=== PATIENT | male | born 1950 ===

== ENCOUNTER 2016-09-15 02:34 | Inpatient (IN) | payer BC ==
[2016-09-15] MEDS ORDERED: Sodium Chloride 0.9% 1,000 ML IV ONE ×3 (02:51→04:22)
[2016-09-15] MEDS ORDERED: Pantoprazole 80 MG in Sodium Chloride 0.9% 100 ML IV STA (02:51)
--- NOTE | 2016-09-15 02:51 | C.PDOC ---
History Of Present Illness pt presents with 3-4 melanotic stools. No f/c/n/v. Pt takes a baby asa. No cp or palpitations. Time Seen by Provider: 09/15/16 02:45 Chief Complaint (Nursing): GI Problem History Per: Patient History/Exam Limitations: no limitations Onset/Duration Of Symptoms: Hrs Current Symptoms Are (Timing): Still Present Number Of Bleeding Episodes: Multiple: (4) Amount of Blood Loss: Medium Severity: Moderate Pain Scale Rating Of: 4 Quality Of Discomfort: Dull Associated Symptoms: Melena. denies: Nausea, Vomiting, Diarrhea, Coffee Ground material, Rectal Bleeding Modifying Factors: None Currently Taking: Aspirin Recent travel outside of the [place]: No Additional History Per: Family Past Medical History Reviewed: Historical Data, Nursing Documentation, Vital Signs Vital Signs: Last Vital Signs Temp 98.1 F 09/15/16 02:39 Pulse 75 09/15/16 03:28 Resp 14 09/15/16 03:28 BP 105/54 L 09/15/16 03:31 Pulse Ox 99 09/15/16 03:28 - Medical History PMH: HTN, Hypercholesterolemia Surgical History: Cholecystectomy Family History: States: No Known Family Hx - Social History Hx Alcohol Use: No Hx Substance Use: No - Immunization History Hx Tetanus Toxoid Vaccination: Yes Hx Influenza Vaccination: Yes Hx Pneumococcal Vaccination: No Review Of Systems Constitutional: Negative for: Fever, Chills Eyes: Negative for: Redness ENT: Negative for: Throat Pain Cardiovascular: Negative for: Chest Pain, Palpitations Respiratory: Negative for: Shortness of Breath Gastrointestinal: Positive for: Abdominal Pain, Melena. Negative for: Nausea, Vomiting, Rectal Pain Genitourinary: Negative for: Dysuria Musculoskeletal: Negative for: Back Pain Skin: Negative for: Rash, Lesions, Jaundice, Bruising Neurological: Negative for: Weakness Psych: Negative for: Anxiety Physical Exam - Physical Exam Appears: Non-toxic Skin: Warm, Dry, Pale Head: Normacephalic Eye(s): bilateral: Normal Inspection Oral Mucosa: Moist Neck: Trachea Midline, Supple Chest: Symmetrical Cardiovascular: Rhythm Regular Respiratory: No Rales, No Rhonchi, No Wheezing Gastrointestinal/Abdominal: Bowel Sounds (tympanic to percussion), Soft, Tenderness (mild, diffuse), No Distention, No Guarding, No Rebound Rectal: Heme Positive, Melena, No Hemorrhoids, No Mass Back: No CVA Tenderness Male Genital: No Inguinal Tenderness Extremity: Normal ROM Extremity: Bilateral: Atraumatic, Normal Color And Temperature Neurological/Psych: Oriented x3, Normal Speech, Normal Cognition Gait: Steady ED Course And Treatment - Laboratory Results Result Diagrams: 09/15/16 03:04 09/15/16 03:04 ECG: Interpreted By Me, Viewed By Me ECG Rhythm: Sinus Rhythm (80), Nonspecific Changes O2 Sat by Pulse Oximetry: 99 Pulse Ox Interpretation: Normal Progress Note: blood work, ivf, protonix Critical Care Time - Critical Care Note Total Time (in mins): 30 Documented critical care: time excludes all time spent performing seperately billable procedures. Disposition Discussed With Dr.: Jose Rafael Crawford Comment: accepeted the pt on his service and took over the care at 4:AM Doctor Will See Patient In The: Hospital Counseled Patient/Family Regarding: Studies Performed, Diagnosis - Disposition Disposition: HOSPITALIZED Disposition Time: 02:51 Condition: GUARDED - POA Present On Arrival: Poor Glycemic Control - Clinical Impression Clinical Impression: Gastrointestinal hemorrhage, Melena Decision To Admit - Pt Status Changed To: Hospital Disposition Of: Inpatient - Admit Certification Admit to Inpatient:: After my assessment, the patient will require hospitalization for at least two midnights. This is because of the severity of symptoms shown, intensity of services needed, and/or the medical risk in this patient being treated as an outpatient. - InPatient: Physician Admission Certification: I certify that this patient requires 2 or more midnights of care for the following reason:: After my assessment, the patient will require hospitalization for at least two midnights. This is because of the severity of symptoms shown, intensity of services needed, and/or the medical risk in this patient being treated as an outpatient. - . Bed Request Type: Telemetry Admitting Physician: Jose Rafael Crawford Patient Diagnosis: Gastrointestinal hemorrhage, Melena
[2016-09-15] MEDS ORDERED: Sodium Chloride 0.9% 1,000 ML ONE ×2 (03:00→04:19)
[2016-09-15 03:13] LABS: INR 0.9; PROTHROMBIN TIME 10.2 SECONDS (9.7-12.2)
[2016-09-15 03:15] LABS: ALBUMIN 3.9 g/dL (3.5-5.0)
[2016-09-15 03:17] LABS: BASO # 0.1 K/uL (0.0-0.2); BASO % 1.4 % (0.0-2.0); EOS # 0.4 K/uL (0.0-0.7); EOS % 6.4 % (0.0-4.0); GFR AFRICAN-AMERICAN > 60; GFR NON-AFRICAN AMERICAN 56; LYMPH # 2.3 K/uL (1.0-4.3); LYMPH % 35.2 % (20.0-40.0); MEAN CELL VOLUME 93.9 fL (80.0-94.0); MEAN CORPUSCULAR HEMOGLOBIN 31.3 pg (27.0-31.0); MEAN CORPUSCULAR HGB CONC 33.3 g/dL (33.0-37.0); MEAN PLATELET VOLUME 8.8 fL (7.2-11.7); MONO # 0.7 K/uL (0.0-0.8); MONO % 10.6 % (0.0-10.0); NEUT # 3.1 K/uL (1.8-7.0); NEUT % 46.4 % (50.0-75.0); NRBC % 0.1 % (0.0-2.0); RBC 3.84 Mil/uL (4.40-5.90); RED CELL DISTRIBUTION WIDTH 12.9 % (11.5-14.5); WHITE BLOOD COUNT 6.7 K/uL (4.8-10.8)
[2016-09-15 03:18] LABS: ALB/GLOB RATIO 1.3 (1.0-2.1); ALT/SGPT 31 U/L (21-72); AST/SGOT 22 U/L (17-59); BLOOD UREA NITROGEN 26 mg/dL (9-20); CALCIUM 8.2 mg/dl (8.6-10.4); LIPASE 509 U/L (23-300)
[2016-09-15] MEDS ORDERED: Pantoprazole 80 MG in Sodium Chloride 0.9% 100 ML IVP SCH (04:15)
[2016-09-15 04:51] LABS: HEMOGLOBIN 8.8 g/dL (12.0-18.0)
[2016-09-15] MEDS ORDERED: Iohexol 350mg/ml 100 ML ONE (04:59)
--- NOTE | 2016-09-15 07:42 | CP.CCUPN ---
CCU Objective - Vital Signs / Intake & Output Vital Signs (Last 4 hours): Vital Signs Pulse Resp BP Pulse Ox 09/15/16 04:56 78 16 110/58 L 99 09/15/16 04:22 74 16 120/57 L 98 09/15/16 04:07 99 09/15/16 04:05 74 16 106/59 L 98 - Medications Active Medications: Active Medications Generic Name Dose Route Start Last Admin Trade Name Freq PRN Reason Stop Dose Admin Pantoprazole Sodium 80 mg/ 100 mls @ 10 mls/hr 09/15/16 04:15 09/15/16 04:31 Sodium Chloride IVP 10 mls/hr .Q10H MARIBEL Administration 8 MG/HR - Patient Studies Lab Studies: Lab Studies 09/15/16 Range/Units 04:48 Hgb 8.8 L D (12.0-18.0) g/dL Hct 26.5 L (35.0-51.0) % Laboratory Results - last 24 hr 09/15/16 04:48 Hgb 8.8 L D Hct 26.5 L Critical Care Progress Note - Nutrition Nutrition: Nutrition Category Date Time Status NPO Diet [DIET] Diets 09/15/16 Breakfast Active
[2016-09-15] MEDS: Sodium Chloride 0.9% 1,000 ML IV SCH ×5 (08:05→21:25)
[2016-09-15 08:17] LABS: HEMOGLOBIN 8.7 g/dL (12.0-18.0); MEAN CELL VOLUME 93.7 fL (80.0-94.0); MEAN CORPUSCULAR HEMOGLOBIN 31.2 pg (27.0-31.0); MEAN CORPUSCULAR HGB CONC 33.3 g/dL (33.0-37.0); MEAN PLATELET VOLUME 8.5 fL (7.2-11.7); RBC 2.79 Mil/uL (4.40-5.90); RED CELL DISTRIBUTION WIDTH 12.7 % (11.5-14.5); WHITE BLOOD COUNT 5.8 K/uL (4.8-10.8)
--- NOTE | 2016-09-15 09:32 | CT ---
PROCEDURE: CT Abdomen and Pelvis with intravenous contrast HISTORY: Upper GI bleed. Abdominal pain. COMPARISON: None. TECHNIQUE: Multiple contiguous axial images were performed through the abdomen and pelvis with intravenous contrast. Subsequently, sagittal and coronal reformatted images were obtained. Radiation dose: Total exam DLP = 382 mGy-cm. This CT exam was performed using one or more of the following dose reduction techniques: Automated exposure control, adjustment of the mA and/or kV according to patient size, and/or use of iterative reconstruction technique. FINDINGS: LOWER THORAX: Mild bibasilar atelectasis. LIVER: Fatty infiltration of the liver. Linear metallic density at the periphery of the right hepatic lobe, likely postsurgical. GALLBLADDER AND BILE DUCTS: Prior cholecystectomy. PANCREAS: Unremarkable. No gross lesion or ductal dilatation. SPLEEN: Unremarkable. ADRENALS: Unremarkable. No mass. KIDNEYS AND URETERS: Right kidney: Multiple cortical defects suggesting prior areas of infection or infarction. 8 mm midpole hypoechoic focus in the right kidney demonstrating a Hounsfield unit attenuation of 15, possibly a cyst. Punctate 2 millimeter nonobstructive calculus in the midpole of the right kidney. Left Kidney: No calculi or hydronephrosis. VASCULATURE: Moderate atherosclerotic calcification in the aorta. BOWEL: Fluid-filled small and large bowel loops suggesting enterocolitis. Clinical correlation. Decompressed stomach. Moderate diverticulosis present in the sigmoid and descending colon. No evidence of diverticulitis. APPENDIX: Unremarkable. Normal appendix. PERITONEUM: Unremarkable. No free fluid. No free air. LYMPH NODES: Unremarkable. No enlarged lymph nodes. BLADDER: Partially decompressed urinary bladder. REPRODUCTIVE: Unremarkable. BONES: Degenerative changes in the spine. Mild diffuse osteopenia. OTHER FINDINGS: None. IMPRESSION: Multiple cortical defects in the right kidney suggesting prior areas of infection or infarction. Suggestion of a small cyst in the right kidney. Punctate nonobstructive calculus in the right kidney. Fluid-filled small and large bowel loops suggesting an enterocolitis. Clinical correlation. Additional findings as above. These findings were preliminarily reported at 6:05 a.m. on 09/15/[address] Juvenal Simons from [employer].
[2016-09-15] MEDS ORDERED: Lactated Ringer's 500 ML IV SCH (13:15)
--- NOTE | 2016-09-15 13:49 | CP.PCM.CON ---
History of Present Illness - History of Present Illness History of Present Illness: This is a 66 year old man with dark stools on the day prior to admission. Patient was in his usual state of health until the day prior to admission when he began to pass dark stools per rectum. These turned dark red with clots this morning. He denies having abdominal pain, nausea, vomiting, heartburn, difficulty swallowing, loss of appetite and weight loss. He had a colonoscopy over 10 years ago which was reportedly normal. Review of Systems - Review of Systems All systems: reviewed and no additional remarkable complaints except - Constitutional Constitutional: absent: Chills, Fever - EENT Nose/Mouth/Throat: absent: Sore Throat - Cardiovascular Cardiovascular: absent: Chest Pain, Palpitations - Respiratory Respiratory: absent: Dyspnea - Gastrointestinal Gastrointestinal: Melena. absent: Abdominal Pain, Dysphagia, Heartburn, Nausea , Vomiting - Genitourinary Genitourinary: absent: Dysuria - Musculoskeletal Musculoskeletal: absent: Back Pain - Integumentary Integumentary: absent: Rash Past Patient History - Past Medical History & Family History Past Medical History?: No - Past Social History Smoking Status: Never Smoked - CARDIAC Hx Hypercholesterolemia: Yes Hx Hypertension: Yes - ENDOCRINE/METABOLIC Hx Diabetes Mellitus Type 2: Yes - HEMATOLOGICAL/ONCOLOGICAL Hx Blood Disorders: No - INTEGUMENTARY Hx Dermatological Problems: No - MUSCULOSKELETAL/RHEUMATOLOGICAL Hx Musculoskeletal Disorders: No Hx Falls: No - GASTROINTESTINAL Hx Gastrointestinal Disorders: No - GENITOURINARY/GYNECOLOGICAL Hx Genitourinary Disorders: No - PSYCHIATRIC Hx Psychophysiologic Disorder: No Hx Substance Use: No - SURGICAL HISTORY Hx Cholecystectomy: Yes - ANESTHESIA Hx Anesthesia: Yes Hx Anesthesia Reactions: No Hx Malignant Hyperthermia: No Has any member of the family had a problem w/ anesthesia?: No Meds Allergies/Adverse Reactions: Allergies Allergy/AdvReac Type Severity Reaction Status Date / Time No Known Allergies Allergy Verified 09/15/16 02:47 - Medications Medications: Current Medications Sodium Chloride (Sodium Chloride 0.9%) 1,000 mls @ 150 mls/hr IV .Q6H40M [facility] Last Admin: 09/15/16 10:38 Dose: 150 mls/hr Pantoprazole Sodium 80 mg/ (Sodium Chloride) 100 mls @ 10 mls/hr IVPB .Q10H [facility] PRN Reason: 8 MG/HR Lactated Ringer's (Lactated Ringer's 500ml) 500 mls @ 75 mls/hr IV .Q6H40M MARIBEL Pneumococcal Polyvalent Vaccine (Pneumovax 23 Vaccine) 0.5 ml IM .ONCE ONE Stop: 09/17/16 10:01 Polyethylene Glycol/Electrolytes (Golytely) 4,000 ml PO ONCE ONE Stop: 09/15/16 19:01 Physical Exam - Head Exam Head Exam: ATRAUMATIC, NORMOCEPHALIC - Eye Exam Eye Exam: EOMI Pupil Exam: PERRL - Neck Exam Neck exam: Negative for: Lymphadenopathy, Thyromegaly - Respiratory Exam Respiratory Exam: NORMAL BREATHING PATTERN. absent: Rales, Rhonchi, Wheezes - Cardiovascular Exam Cardiovascular Exam: REGULAR RHYTHM, +S1, +S2. absent: Gallop, Rubs, Systolic Murmur - GI/Abdominal Exam GI & Abdominal Exam: Normal Bowel Sounds, Soft. absent: Mass, Organomegaly, Tenderness - Rectal Exam Rectal Exam: Deferred - Extremities Exam Extremities exam: Negative for: calf tenderness, pedal edema Results - Vital Signs Recent Vital Signs: Last Vital Signs Temp 98.2 F 09/15/16 12:55 Pulse 82 09/15/16 12:55 Resp 12 09/15/16 12:55 BP 128/55 L 09/15/16 12:55 Pulse Ox 99 09/15/16 12:55 - Labs Result Diagrams: 09/16/16 06:12 09/16/16 06:12 Labs: Laboratory Results - last 24 hr 09/15/16 09/15/16 09/15/16 04:48 08:04 11:35 WBC 5.8 RBC 2.79 L Hgb 8.8 L D 8.7 L Hct 26.5 L 26.2 L MCV 93.7 MCH 31.2 H MCHC 33.3 RDW 12.7 Plt Count 199 MPV 8.5 POC Glucose (mg/dL) 173 H Assessment & Plan (1) Gastrointestinal hemorrhage Assessment and Plan: Patient has GI bleed, most likely upper source in view of the dark bowel movements. He will have EGD today. Status: Acute
[2016-09-15] MEDS: Pantoprazole 80 MG in Sodium Chloride 0.9% 100 ML IVPB SCH ×2 (15:20→21:45)
--- NOTE | 2016-09-15 18:12 | CP.CCUPN ---
<JamisonChayo BernardinoBasim - Last Filed: 09/15/16 18:06> CCU Subjective - Physician Review Subjective (Free Text): Patient was transferred from the medical floor to the ICU. Patient was seen and examined this AM. Patient states he is feeling well. Patient denies chest pain, shortness of breath, fever, nausea or vomiting. 09/15/16 18:06 CCU Objective - Vital Signs / Intake & Output Vital Signs (Last 4 hours): Vital Signs Pulse Resp BP Pulse Ox 09/15/16 14:55 78 14 122/60 98 09/15/16 14:25 76 13 132/57 L 99 Intake and Output (Last 8hrs): Intake & Output 09/15/16 09/15/16 09/15/16 06:59 14:59 22:59 Intake Total 1370 480 Output Total 800 300 Balance 570 180 Weight 154 lb Intake: IV 400 Intake, IV Amount 970 480 Left Antecubital 770 450 Left Proximal Port 190 30 Antecubital Right Antecubital 10 Oral 0 0 Output: Urine 800 300 Urine, Voided 800 300 Stool 0 0 Other: # Voids Urine, Voided 1 1 # Bowel Movements 1 - Physical Exam Head: Positive for: Normocephalic Pupils: Positive for: PERRL Extroacular Muscles: Positive for: EOMI Conjunctiva: Positive for: Normal Respiratory/Chest: Positive for: Clear to Auscultation, Good Air Exchange. Negative for: Wheezes, Rales Cardiovascular: Positive for: Regular Rate and Rhythm, Normal S1, S2 Abdomen: Positive for: Normal Bowel Sounds. Negative for: Tenderness Lower Extremity: Negative for: Edema Neurological: Positive for: Speech Normal Skin: Positive for: Warm, Normal Color Psychiatric: Positive for: Alert, Oriented x 3 - Medications Active Medications: Active Medications Generic Name Dose Route Start Last Admin Trade Name Freq PRN Reason Stop Dose Admin Sodium Chloride 1,000 mls @ 150 mls/hr 09/15/16 08:00 09/15/16 17:21 Sodium Chloride 0.9% IV 150 mls/hr .Q6H40M MARIBEL Administration Pantoprazole Sodium 80 mg/ 100 mls @ 10 mls/hr 09/15/16 11:45 09/15/16 15:20 Sodium Chloride IVPB 10 mls/hr .Q10H MARIBEL Administration 8 MG/HR Pneumococcal Polyvalent Vaccine 0.5 ml 09/17/16 10:00 Pneumovax 23 Vaccine IM 09/17/16 10:01 .ONCE ONE Polyethylene Glycol/Electrolytes 4,000 ml 09/15/16 19:00 Golytely PO 09/15/16 19:01 ONCE ONE - Patient Studies Lab Studies: Lab Studies 09/15/16 09/15/16 09/15/16 Range/Units 16:07 11:35 08:04 WBC 5.8 (4.8-10.8) K/uL RBC 2.79 L (4.40-5.90) Mil/uL Hgb 8.7 L (12.0-18.0) g/dL Hct 26.2 L (35.0-51.0) % MCV 93.7 (80.0-94.0) fL MCH 31.2 H (27.0-31.0) pg MCHC 33.3 (33.0-37.0) g/dL RDW 12.7 (11.5-14.5) % Plt Count 199 (130-400) K/uL MPV 8.5 (7.2-11.7) fL POC Glucose (mg/dL) 127 H 173 H (65-110) mg/dL 09/15/16 Range/Units 04:48 WBC (4.8-10.8) K/uL RBC (4.40-5.90) Mil/uL Hgb 8.8 L D (12.0-18.0) g/dL Hct 26.5 L (35.0-51.0) % MCV (80.0-94.0) fL MCH (27.0-31.0) pg MCHC (33.0-37.0) g/dL RDW (11.5-14.5) % Plt Count (130-400) K/uL MPV (7.2-11.7) fL POC Glucose (mg/dL) (65-110) mg/dL Laboratory Results - last 24 hr 09/15/16 09/15/16 09/15/16 04:48 08:04 11:35 WBC 5.8 RBC 2.79 L Hgb 8.8 L D 8.7 L Hct 26.5 L 26.2 L MCV 93.7 MCH 31.2 H MCHC 33.3 RDW 12.7 Plt Count 199 MPV 8.5 POC Glucose (mg/dL) 173 H 09/15/16 16:07 WBC RBC Hgb Hct MCV MCH MCHC RDW Plt Count MPV POC Glucose (mg/dL) 127 H Fingerstick Blood Sugar Results: 127 Review of Systems - Constitutional Constitutional: absent: Fever - EENT Eyes: absent: Blurred Vision - Cardiovascular Cardiovascular: absent: Chest Pain, Dyspnea - Respiratory Respiratory: absent: Dyspnea - Gastrointestinal Gastrointestinal: Melena. absent: Abdominal Pain, Constipation, Diarrhea, Nausea, Vomiting - Musculoskeletal Musculoskeletal: absent: Joint Swelling, Muscle Weakness - Neurological Neurological: absent: Headaches Critical Care Progress Note - Nutrition Nutrition: Nutrition Category Date Time Status NPO Diet [DIET] Diets 09/15/16 Breakfast Active Assessment/Plan - Assessment and Plan (Free Text) Assessment: This is a 66 year old male with dark stools on the day prior to admission. Plan: Neuro: - alert - oriented x3 Pulm: - Nasal Canula 2L Heme: - H/H on admission: 12/36.1; followed by 8.8/26.5 --> 8.7/26.2 - Monitor - PT/INR: 10.2/0.9 Renal: - BUN/Cr: 26/1.3 GI: - CT Abdomen and Pelvis: Multiple cortical defects in the right kidney suggesting prior areas of infection or infarction. Suggestion of a small cyst in the right kidney. Punctate nonobstructive calculus in the right kidney. Fluid filled small and large bowel loops suggesting an entercolitis. - Stool Occult Blood: Positive - f/u Endoscopy Report - GI Consult: Dr. Woodard --> help appreciated - NPO - Colonoscopy to be performed 09/16/2016 - Pantoprazole 100mls at 10mls/hr IVPB Q10H DVT proph - SCDs GI proph - Pantoprazole 100mls at 10mls/hr IVPB Q10H Code status - full code Case discussed with Dr. Ruba Swift PGY-1 <Ceasar Yeh - Last Filed: 09/15/16 18:39> CCU Objective - Vital Signs / Intake & Output Vital Signs (Last 4 hours): Vital Signs Pulse Resp BP Pulse Ox 09/15/16 18:00 82 12 126/48 L 99 09/15/16 14:55 78 14 122/60 98 Intake and Output (Last 8hrs): Intake & Output 09/15/16 09/15/16 09/15/16 06:59 14:59 22:59 Intake Total 1370 480 Output Total 800 300 Balance 570 180 Weight 154 lb Intake: IV 400 Intake, IV Amount 970 480 Left Antecubital 770 450 Left Proximal Port 190 30 Antecubital Right Antecubital 10 Oral 0 0 Output: Urine 800 300 Urine, Voided 800 300 Stool 0 0 Other: # Voids Urine, Voided 1 1 # Bowel Movements 1 - Medications Active Medications: Active Medications Generic Name Dose Route Start Last Admin Trade Name Freq PRN Reason Stop Dose Admin Sodium Chloride 1,000 mls @ 150 mls/hr 09/15/16 08:00 09/15/16 17:21 Sodium Chloride 0.9% IV 150 mls/hr .Q6H40M [facility] Administration Pantoprazole Sodium 80 mg/ 100 mls @ 10 mls/hr 09/15/16 11:45 09/15/16 15:20 Sodium Chloride IVPB 10 mls/hr .Q10H [facility] Administration 8 MG/HR Pneumococcal Polyvalent Vaccine 0.5 ml 09/17/16 10:00 Pneumovax 23 Vaccine IM 09/17/16 10:01 .ONCE ONE Polyethylene Glycol/Electrolytes 4,000 ml 09/15/16 19:00 09/15/16 18:26 Golytely PO 09/15/16 19:01 4,000 ml ONCE ONE Administration - Patient Studies Lab Studies: Lab Studies 09/15/16 09/15/16 09/15/16 Range/Units 16:07 11:35 08:04 WBC 5.8 (4.8-10.8) K/uL RBC 2.79 L (4.40-5.90) Mil/uL Hgb 8.7 L (12.0-18.0) g/dL Hct 26.2 L (35.0-51.0) % MCV 93.7 (80.0-94.0) fL MCH 31.2 H (27.0-31.0) pg MCHC 33.3 (33.0-37.0) g/dL RDW 12.7 (11.5-14.5) % Plt Count 199 (130-400) K/uL MPV 8.5 (7.2-11.7) fL POC Glucose (mg/dL) 127 H 173 H (65-110) mg/dL 09/15/16 Range/Units 04:48 WBC (4.8-10.8) K/uL RBC (4.40-5.90) Mil/uL Hgb 8.8 L D (12.0-18.0) g/dL Hct 26.5 L (35.0-51.0) % MCV (80.0-94.0) fL MCH (27.0-31.0) pg MCHC (33.0-37.0) g/dL RDW (11.5-14.5) % Plt Count (130-400) K/uL MPV (7.2-11.7) fL POC Glucose (mg/dL) (65-110) mg/dL Laboratory Results - last 24 hr 09/15/16 09/15/16 09/15/16 04:48 08:04 11:35 WBC 5.8 RBC 2.79 L Hgb 8.8 L D 8.7 L Hct 26.5 L 26.2 L MCV 93.7 MCH 31.2 H MCHC 33.3 RDW 12.7 Plt Count 199 MPV 8.5 POC Glucose (mg/dL) 173 H 09/15/16 16:07 WBC RBC Hgb Hct MCV MCH MCHC RDW Plt Count MPV POC Glucose (mg/dL) 127 H Critical Care Progress Note - Nutrition Nutrition: Nutrition Category Date Time Status NPO Diet [DIET] Diets 09/15/16 Breakfast Active Attending/Attestation - Attestation I have personally seen and examined this patient.: Yes I have fully participated in the care of the patient.: Yes I have reviewed all pertinent clinical information: Yes Notes (Text): 09/15/16 18:38 Today: September The Patient was seen and examined at the bedside, Medical records reviewed, all clinical/lab/hemodynamic/radiographic data were reviewed and management issues were discussed and formulated, Events reviewed Pain issues, skin care, head of the bed elevation, glycemic control were addressed. Agree with above treatment plans as transcribed in Dr. Swift note
[2016-09-15] MEDS ORDERED: Peg-Electrolyte Oral Soln 4L (Golytely) PO ONE (19:00)
[2016-09-15] MEDS: Acetaminophen 650mg/20.3ml solution UD PO STA ×2 (21:23→21:28)
[2016-09-15 22:25] LABS: BASO # 0.1 K/uL (0.0-0.2); BASO % 0.8 % (0.0-2.0); EOS # 0.3 K/uL (0.0-0.7); EOS % 3.8 % (0.0-4.0); HEMOGLOBIN 8.2 g/dL (12.0-18.0); LYMPH # 1.6 K/uL (1.0-4.3); LYMPH % 23.5 % (20.0-40.0); MEAN CELL VOLUME 95.1 fL (80.0-94.0); MEAN CORPUSCULAR HEMOGLOBIN 31.5 pg (27.0-31.0); MEAN CORPUSCULAR HGB CONC 33.1 g/dL (33.0-37.0); MONO # 0.5 K/uL (0.0-0.8); MONO % 7.7 % (0.0-10.0); NEUT # 4.3 K/uL (1.8-7.0); NEUT % 64.2 % (50.0-75.0); NRBC % 0.1 % (0.0-2.0); RBC 2.59 Mil/uL (4.40-5.90); RED CELL DISTRIBUTION WIDTH 12.8 % (11.5-14.5); WHITE BLOOD COUNT 6.6 K/uL (4.8-10.8)
[2016-09-16] MEDS: Pantoprazole 80 MG in Sodium Chloride 0.9% 100 ML IVPB SCH ×2 (00:41→07:48)
[2016-09-16] MEDS: Sodium Chloride 0.9% 1,000 ML IV SCH ×4 (00:41→15:24)
[2016-09-16 06:18] LABS: BASO % 0.6 % (0.0-2.0); EOS # 0.1 K/uL (0.0-0.7); LYMPH # 0.7 K/uL (1.0-4.3); LYMPH % 14.1 % (20.0-40.0); MEAN CELL VOLUME 95.1 fL (80.0-94.0); MEAN CORPUSCULAR HEMOGLOBIN 31.1 pg (27.0-31.0); MEAN CORPUSCULAR HGB CONC 32.7 g/dL (33.0-37.0); MEAN PLATELET VOLUME 8.7 fL (7.2-11.7); MONO # 0.3 K/uL (0.0-0.8); MONO % 5.1 % (0.0-10.0); NEUT % 79.2 % (50.0-75.0); RBC 2.07 Mil/uL (4.40-5.90); RED CELL DISTRIBUTION WIDTH 12.6 % (11.5-14.5); WHITE BLOOD COUNT 5.1 K/uL (4.8-10.8)
[2016-09-16 06:24] LABS: ALBUMIN 2.9 g/dL (3.5-5.0)
[2016-09-16 06:26] LABS: GFR AFRICAN-AMERICAN > 60; GFR NON-AFRICAN AMERICAN > 60
[2016-09-16 06:27] LABS: ALB/GLOB RATIO 1.3 (1.0-2.1); ALT/SGPT 32 U/L (21-72); AST/SGOT 22 U/L (17-59); BLOOD UREA NITROGEN 11 mg/dL (9-20)
[2016-09-16 06:28] LABS: CALCIUM 6.9 mg/dl (8.6-10.4); MAGNESIUM 1.8 mg/dL (1.6-2.3)
[2016-09-16 06:34] LABS: HEMOGLOBIN 6.4 g/dL (12.0-18.0)
--- NOTE | 2016-09-16 06:45 | CP.CCUPN ---
<JamisonChayo SBasim - Last Filed: 09/16/16 11:14> CCU Subjective - Physician Review Subjective (Free Text): Patient was seen and examined at bedside in the AM. Patient denies chest pain, shortness of breath, nausea, vomiting, or headache. Patient was given bowel prep for colonoscopy this AM. Per nurse the patient had bloody stools during the colon prep. CCU Objective - Vital Signs / Intake & Output Vital Signs (Last 4 hours): Vital Signs Temp Pulse Resp BP Pulse Ox 09/16/16 05:00 94 H 16 100 09/16/16 04:53 117/44 L 09/16/16 04:00 98.2 F 93 H 16 98 09/16/16 03:53 115/40 L 09/16/16 02:53 91 H 14 124/52 L 98 Intake and Output (Last 8hrs): Intake & Output 09/15/16 09/15/16 09/16/16 14:59 22:59 06:59 Intake Total 1370 3420 1870 Output Total 800 1350 700 Balance 570 2070 1170 Weight 154 lb Intake: IV 400 Intake, IV Amount 970 1440 1120 Left Antecubital 770 1360 1050 Left Proximal Port 190 80 70 Antecubital Right Antecubital 10 Oral 0 1980 750 Output: Urine 800 1350 700 Urine, Voided 800 1350 700 Stool 0 0 Other: # Voids Urine, Voided 1 0 0 # Bowel Movements 1 2 0 - Physical Exam Head: Positive for: Normocephalic Pupils: Positive for: PERRL Extroacular Muscles: Positive for: EOMI Conjunctiva: Positive for: Normal Ears: Positive for: Normal Mouth: Positive for: Moist Mucous Membranes Respiratory/Chest: Positive for: Clear to Auscultation, Good Air Exchange. Negative for: Wheezes, Rales Cardiovascular: Positive for: Regular Rate and Rhythm, Normal S1, S2 Abdomen: Positive for: Normal Bowel Sounds. Negative for: Tenderness Lower Extremity: Negative for: Edema, CALF TENDERNESS, Tenderness, Swelling Neurological: Positive for: Speech Normal Skin: Positive for: Warm, Normal Color Psychiatric: Positive for: Alert, Oriented x 3 - Medications Active Medications: Active Medications Generic Name Dose Route Start Last Admin Trade Name Freq PRN Reason Stop Dose Admin Sodium Chloride 1,000 mls @ 150 mls/hr 09/15/16 08:00 09/16/16 04:00 Sodium Chloride 0.9% IV Not Given .[id number] MARIBEL Pantoprazole Sodium 80 mg/ 100 mls @ 10 mls/hr 09/15/16 11:45 09/16/16 00:41 Sodium Chloride IVPB 10 mls/hr .Q10H MARIBEL Administration 8 MG/HR Pneumococcal Polyvalent Vaccine 0.5 ml 09/17/16 10:00 Pneumovax 23 Vaccine IM 09/17/16 10:01 .ONCE ONE - Patient Studies Lab Studies: Lab Studies 09/16/16 09/16/16 09/15/16 Range/Units 06:12 06:12 22:00 WBC 5.1 6.6 (4.8-10.8) K/uL RBC 2.07 L 2.59 L (4.40-5.90) Mil/uL Hgb 6.4 L* 8.2 L (12.0-18.0) g/dL Hct 19.7 L 24.6 L (35.0-51.0) % MCV 95.1 H 95.1 H (80.0-94.0) fL MCH 31.1 H 31.5 H (27.0-31.0) pg MCHC 32.7 L 33.1 (33.0-37.0) g/dL RDW 12.6 12.8 (11.5-14.5) % Plt Count 185 170 (130-400) K/uL MPV 8.7 9.0 (7.2-11.7) fL Neut % (Auto) 79.2 H 64.2 (50.0-75.0) % Lymph % (Auto) 14.1 L 23.5 (20.0-40.0) % Barbour % (Auto) 5.1 7.7 (0.0-10.0) % Eos % (Auto) 1.0 3.8 (0.0-4.0) % Baso % (Auto) 0.6 0.8 (0.0-2.0) % Neut # 4.0 4.3 (1.8-7.0) K/uL Lymph # 0.7 L 1.6 (1.0-4.3) K/uL Barbour # 0.3 0.5 (0.0-0.8) K/uL Eos # 0.1 0.3 (0.0-0.7) K/uL Baso # 0.0 0.1 (0.0-0.2) K/uL Sodium 141 (132-148) mmol/L Potassium 4.0 (3.6-5.2) mmol/L Chloride 108 H (98-107) mmol/L Carbon Dioxide 16 L (22-30) mmol/L Anion Gap 21 H (10-20) BUN 11 (9-20) mg/dL Creatinine 0.9 (0.8-1.5) MG/DL Est GFR ( Amer) > 60 Est GFR (Non-Af Amer) > 60 POC Glucose (mg/dL) (65-110) mg/dL Random Glucose 86 (75-110) mg/dL Calcium 6.9 L (8.6-10.4) mg/dl Phosphorus 3.3 (2.5-4.5) mg/dL Magnesium 1.8 (1.6-2.3) mg/dL Total Bilirubin 0.3 (0.2-1.3) mg/dL AST 22 (17-59) U/L ALT 32 (21-72) U/L Alkaline Phosphatase 21 L D (38-126) U/L Total Protein 5.1 L (6.3-8.3) g/dL Albumin 2.9 L D (3.5-5.0) g/dL Globulin 2.2 (2.2-3.9) gm/dL Albumin/Globulin Ratio 1.3 (1.0-2.1) 09/15/16 09/15/16 09/15/16 Range/Units 21:07 16:07 11:35 WBC (4.8-10.8) K/uL RBC (4.40-5.90) Mil/uL Hgb (12.0-18.0) g/dL Hct (35.0-51.0) % MCV (80.0-94.0) fL MCH (27.0-31.0) pg MCHC (33.0-37.0) g/dL RDW (11.5-14.5) % Plt Count (130-400) K/uL MPV (7.2-11.7) fL Neut % (Auto) (50.0-75.0) % Lymph % (Auto) (20.0-40.0) % Barbour % (Auto) (0.0-10.0) % Eos % (Auto) (0.0-4.0) % Baso % (Auto) (0.0-2.0) % Neut # (1.8-7.0) K/uL Lymph # (1.0-4.3) K/uL Barbour # (0.0-0.8) K/uL Eos # (0.0-0.7) K/uL Baso # (0.0-0.2) K/uL Sodium (132-148) mmol/L Potassium (3.6-5.2) mmol/L Chloride (98-107) mmol/L Carbon Dioxide (22-30) mmol/L Anion Gap (10-20) BUN (9-20) mg/dL Creatinine (0.8-1.5) MG/DL Est GFR ( Amer) Est GFR (Non-Af Amer) POC Glucose (mg/dL) 94 127 H 173 H (65-110) mg/dL Random Glucose (75-110) mg/dL Calcium (8.6-10.4) mg/dl Phosphorus (2.5-4.5) mg/dL Magnesium (1.6-2.3) mg/dL Total Bilirubin (0.2-1.3) mg/dL AST (17-59) U/L ALT (21-72) U/L Alkaline Phosphatase (38-126) U/L Total Protein (6.3-8.3) g/dL Albumin (3.5-5.0) g/dL Globulin (2.2-3.9) gm/dL Albumin/Globulin Ratio (1.0-2.1) 09/15/16 Range/Units 08:04 WBC 5.8 (4.8-10.8) K/uL RBC 2.79 L (4.40-5.90) Mil/uL Hgb 8.7 L (12.0-18.0) g/dL Hct 26.2 L (35.0-51.0) % MCV 93.7 (80.0-94.0) fL MCH 31.2 H (27.0-31.0) pg MCHC 33.3 (33.0-37.0) g/dL RDW 12.7 (11.5-14.5) % Plt Count 199 (130-400) K/uL MPV 8.5 (7.2-11.7) fL Neut % (Auto) (50.0-75.0) % Lymph % (Auto) (20.0-40.0) % Barbour % (Auto) (0.0-10.0) % Eos % (Auto) (0.0-4.0) % Baso % (Auto) (0.0-2.0) % Neut # (1.8-7.0) K/uL Lymph # (1.0-4.3) K/uL Barbour # (0.0-0.8) K/uL Eos # (0.0-0.7) K/uL Baso # (0.0-0.2) K/uL Sodium (132-148) mmol/L Potassium (3.6-5.2) mmol/L Chloride (98-107) mmol/L Carbon Dioxide (22-30) mmol/L Anion Gap (10-20) BUN (9-20) mg/dL Creatinine (0.8-1.5) MG/DL Est GFR ( Amer) Est GFR (Non-Af Amer) POC Glucose (mg/dL) (65-110) mg/dL Random Glucose (75-110) mg/dL Calcium (8.6-10.4) mg/dl Phosphorus (2.5-4.5) mg/dL Magnesium (1.6-2.3) mg/dL Total Bilirubin (0.2-1.3) mg/dL AST (17-59) U/L ALT (21-72) U/L Alkaline Phosphatase (38-126) U/L Total Protein (6.3-8.3) g/dL Albumin (3.5-5.0) g/dL Globulin (2.2-3.9) gm/dL Albumin/Globulin Ratio (1.0-2.1) Laboratory Results - last 24 hr 09/15/16 09/15/16 09/15/16 08:04 11:35 16:07 WBC 5.8 RBC 2.79 L Hgb 8.7 L Hct 26.2 L MCV 93.7 MCH 31.2 H MCHC 33.3 RDW 12.7 Plt Count 199 MPV 8.5 Neut % (Auto) Lymph % (Auto) Barbour % (Auto) Eos % (Auto) Baso % (Auto) Neut # Lymph # Barbour # Eos # Baso # Sodium Potassium Chloride Carbon Dioxide Anion Gap BUN Creatinine Est GFR ( Amer) Est GFR (Non-Af Amer) POC Glucose (mg/dL) 173 H 127 H Random Glucose Calcium Phosphorus Magnesium Total Bilirubin AST ALT Alkaline Phosphatase Total Protein Albumin Globulin Albumin/Globulin Ratio 09/15/16 09/15/16 09/16/16 21:07 22:00 06:12 WBC 6.6 RBC 2.59 L Hgb 8.2 L Hct 24.6 L MCV 95.1 H MCH 31.5 H MCHC 33.1 RDW 12.8 Plt Count 170 MPV 9.0 Neut % (Auto) 64.2 Lymph % (Auto) 23.5 Barbour % (Auto) 7.7 Eos % (Auto) 3.8 Baso % (Auto) 0.8 Neut # 4.3 Lymph # 1.6 Barbour # 0.5 Eos # 0.3 Baso # 0.1 Sodium 141 Potassium 4.0 Chloride 108 H Carbon Dioxide 16 L Anion Gap 21 H BUN 11 Creatinine 0.9 Est GFR ( Amer) > 60 Est GFR (Non-Af Amer) > 60 POC Glucose (mg/dL) 94 Random Glucose 86 Calcium 6.9 L Phosphorus 3.3 Magnesium 1.8 Total Bilirubin 0.3 AST 22 ALT 32 Alkaline Phosphatase 21 L D Total Protein 5.1 L Albumin 2.9 L D Globulin 2.2 Albumin/Globulin Ratio 1.3 09/16/16 06:12 WBC 5.1 RBC 2.07 L Hgb 6.4 L* Hct 19.7 L MCV 95.1 H MCH 31.1 H MCHC 32.7 L RDW 12.6 Plt Count 185 MPV 8.7 Neut % (Auto) 79.2 H Lymph % (Auto) 14.1 L Barbour % (Auto) 5.1 Eos % (Auto) 1.0 Baso % (Auto) 0.6 Neut # 4.0 Lymph # 0.7 L Barbour # 0.3 Eos # 0.1 Baso # 0.0 Sodium Potassium Chloride Carbon Dioxide Anion Gap BUN Creatinine Est GFR ( Amer) Est GFR (Non-Af Amer) POC Glucose (mg/dL) Random Glucose Calcium Phosphorus Magnesium Total Bilirubin AST ALT Alkaline Phosphatase Total Protein Albumin Globulin Albumin/Globulin Ratio Fingerstick Blood Sugar Results: 127 Review of Systems - Constitutional Constitutional: absent: Fever - EENT Eyes: absent: Blurred Vision - Cardiovascular Cardiovascular: absent: Chest Pain, Dyspnea, Leg Edema, Palpitations - Respiratory Respiratory: absent: Cough, Dyspnea - Gastrointestinal Gastrointestinal: Melena. absent: Constipation, Diarrhea - Genitourinary Genitourinary: absent: Dysuria - Neurological Neurological: absent: Dizziness, Headaches Critical Care Progress Note - Nutrition Nutrition: Nutrition Category Date Time Status NPO Diet [DIET] Diets 09/15/16 Breakfast Active Assessment/Plan - Assessment and Plan (Free Text) Assessment: This is a 66 year old male with dark stools on the day prior to admission. Plan: Neuro: - alert - oriented x3 Pulm: - Nasal Canula 2L Heme: - H/H (09/16): 6.4/19.7 - Ordered 1 unit of PRBC - H/H on admission: 12/36.1; followed by 8.8/26.5 --> 8.7/26.2 - PT/INR (09/15): 10.2/0.9 - Monitor Renal: - BUN/Cr: 11/0.9 GI: - CT Abdomen and Pelvis: Multiple cortical defects in the right kidney suggesting prior areas of infection or infarction. Suggestion of a small cyst in the right kidney. Punctate nonobstructive calculus in the right kidney. Fluid filled small and large bowel loops suggesting an entercolitis. - Stool Occult Blood: Positive - Endoscopy Report (09/15/16): A small hiatus hernia was present. The stomach was normal. A small diverticulum was found in the second part of the duodenum. - GI Consult: Dr. Woodard --> help appreciated - Colonoscopy performed 09/16/2016: Internal hemorrhoids were found during retroflexion. the hemorrhoids were large and Grade I (internal hemorrhoids that do not prolapse). Multiple small-mouthed diverticula were found in the sigmoid colon, in the transverse colon and in the ascending colon. The exam was otherwise without abnormality. - Pantoprazole 100mls at 10mls/hr IVPB Q10H - f/u Fasting Lipid Panel - Liquid Diet Endo: - History of Diabetes - Accuchecks - f/u hA1c DVT proph - SCDs GI proph - Pantoprazole 100mls at 10mls/hr IVPB Q10H Code status - full code Case discussed with Dr. Romario Swift PGY-1 <Earl Doss S - Last Filed: 09/16/16 16:18> CCU Objective - Vital Signs / Intake & Output Vital Signs (Last 4 hours): Vital Signs Temp Pulse Resp BP Pulse Ox 09/16/16 15:17 78 15 128/51 L 99 09/16/16 15:03 82 17 134/50 L 09/16/16 15:00 83 17 100 09/16/16 14:47 83 15 134/54 L 99 09/16/16 14:32 86 15 140/61 100 09/16/16 14:17 92 H 17 140/61 100 09/16/16 14:02 84 17 148/60 100 09/16/16 14:00 87 17 100 09/16/16 13:47 89 17 141/50 L 100 09/16/16 13:32 80 16 141/66 100 09/16/16 13:20 98.4 F 82 16 141/61 09/16/16 13:17 84 18 141/61 100 09/16/16 13:02 82 16 140/65 100 09/16/16 13:00 79 18 100 09/16/16 12:47 78 14 138/65 100 09/16/16 12:32 79 14 138/63 100 Intake and Output (Last 8hrs): Intake & Output 09/16/16 09/16/16 09/16/16 06:59 14:59 22:59 Intake Total 2029 3120 275 Output Total 1100 2000 0 Balance 930 1120 275 Intake: Intake, IV Amount 1280 620 75 Left Antecubital 1200 600 75 Left Proximal Port 80 20 Antecubital Oral 750 1100 200 Blood Product 1300 Red Blood Cells Cpd As1 325 Lr Unit [id number] Red Blood Cells Cpd As1 325 Lr Unit [id number] Other 100 Red Blood Cells Cpd As1 50 Lr Unit [id number] Red Blood Cells Cpd As1 50 Lr Unit [id number] Output: Urine 1100 2000 0 Urine, Voided 1100 2000 0 Other: # Voids Urine, Voided 1 0 # Bowel Movements 1 0 0 - Medications Active Medications: Active Medications Generic Name Dose Route Start Last Admin Trade Name Jovi PRN Reason Stop Dose Admin Pantoprazole Sodium 40 mg 09/16/16 10:00 09/16/16 09:37 Protonix Ec Tab PO 40 mg DAILY MARIBEL Administration Pneumococcal Polyvalent Vaccine 0.5 ml 09/17/16 10:00 Pneumovax 23 Vaccine IM 09/17/16 10:01 .ONCE ONE - Patient Studies Lab Studies: Microbiology Studies 09/15/16 10:30 MRSA Culture (Admit) - Final Naris MRSA NOT DETECTED Lab Studies 09/16/16 09/16/16 09/16/16 Range/Units 16:01 11:35 09:42 WBC (4.8-10.8) K/uL RBC (4.40-5.90) Mil/uL Hgb (12.0-18.0) g/dL Hct (35.0-51.0) % MCV (80.0-94.0) fL MCH (27.0-31.0) pg MCHC (33.0-37.0) g/dL RDW (11.5-14.5) % Plt Count (130-400) K/uL MPV (7.2-11.7) fL Neut % (Auto) (50.0-75.0) % Lymph % (Auto) (20.0-40.0) % Barbour % (Auto) (0.0-10.0) % Eos % (Auto) (0.0-4.0) % Baso % (Auto) (0.0-2.0) % Neut # (1.8-7.0) K/uL Lymph # (1.0-4.3) K/uL Barbour # (0.0-0.8) K/uL Eos # (0.0-0.7) K/uL Baso # (0.0-0.2) K/uL Sodium (132-148) mmol/L Potassium (3.6-5.2) mmol/L Chloride (98-107) mmol/L Carbon Dioxide (22-30) mmol/L Anion Gap (10-20) BUN (9-20) mg/dL Creatinine (0.8-1.5) MG/DL Est GFR ( Amer) Est GFR (Non-Af Amer) POC Glucose (mg/dL) 233 H 112 H (65-110) mg/dL Random Glucose (75-110) mg/dL Hemoglobin A1c 8.7 H (4.2-6.5) % Calcium (8.6-10.4) mg/dl Phosphorus (2.5-4.5) mg/dL Magnesium (1.6-2.3) mg/dL Total Bilirubin (0.2-1.3) mg/dL AST (17-59) U/L ALT (21-72) U/L Alkaline Phosphatase (38-126) U/L Total Protein (6.3-8.3) g/dL Albumin (3.5-5.0) g/dL Globulin (2.2-3.9) gm/dL Albumin/Globulin Ratio (1.0-2.1) Triglycerides (0-149) mg/dL Cholesterol (0-199) mg/dL LDL Cholesterol Direct (0-129) mg/dL HDL Cholesterol (30-70) mg/dL 09/16/16 09/16/16 09/16/16 Range/Units 07:35 06:12 06:12 WBC 5.1 (4.8-10.8) K/uL RBC 2.07 L (4.40-5.90) Mil/uL Hgb 6.4 L* (12.0-18.0) g/dL Hct 19.7 L (35.0-51.0) % MCV 95.1 H (80.0-94.0) fL MCH 31.1 H (27.0-31.0) pg MCHC 32.7 L (33.0-37.0) g/dL RDW 12.6 (11.5-14.5) % Plt Count 185 (130-400) K/uL MPV 8.7 (7.2-11.7) fL Neut % (Auto) 79.2 H (50.0-75.0) % Lymph % (Auto) 14.1 L (20.0-40.0) % Barbour % (Auto) 5.1 (0.0-10.0) % Eos % (Auto) 1.0 (0.0-4.0) % Baso % (Auto) 0.6 (0.0-2.0) % Neut # 4.0 (1.8-7.0) K/uL Lymph # 0.7 L (1.0-4.3) K/uL Barbour # 0.3 (0.0-0.8) K/uL Eos # 0.1 (0.0-0.7) K/uL Baso # 0.0 (0.0-0.2) K/uL Sodium 141 (132-148) mmol/L Potassium 4.0 (3.6-5.2) mmol/L Chloride 108 H (98-107) mmol/L Carbon Dioxide 16 L (22-30) mmol/L Anion Gap 21 H (10-20) BUN 11 (9-20) mg/dL Creatinine 0.9 (0.8-1.5) MG/DL Est GFR ( Amer) > 60 Est GFR (Non-Af Amer) > 60 POC Glucose (mg/dL) 121 H (65-110) mg/dL Random Glucose 86 (75-110) mg/dL Hemoglobin A1c (4.2-6.5) % Calcium 6.9 L (8.6-10.4) mg/dl Phosphorus 3.3 (2.5-4.5) mg/dL Magnesium 1.8 (1.6-2.3) mg/dL Total Bilirubin 0.3 (0.2-1.3) mg/dL AST 22 (17-59) U/L ALT 32 (21-72) U/L Alkaline Phosphatase 21 L D (38-126) U/L Total Protein 5.1 L (6.3-8.3) g/dL Albumin 2.9 L D (3.5-5.0) g/dL Globulin 2.2 (2.2-3.9) gm/dL Albumin/Globulin Ratio 1.3 (1.0-2.1) Triglycerides 74 (0-149) mg/dL Cholesterol 75 (0-199) mg/dL LDL Cholesterol Direct 49 (0-129) mg/dL HDL Cholesterol 22 L (30-70) mg/dL 09/15/16 09/15/16 09/15/16 Range/Units 22:00 21:07 16:07 WBC 6.6 (4.8-10.8) K/uL RBC 2.59 L (4.40-5.90) Mil/uL Hgb 8.2 L (12.0-18.0) g/dL Hct 24.6 L (35.0-51.0) % MCV 95.1 H (80.0-94.0) fL MCH 31.5 H (27.0-31.0) pg MCHC 33.1 (33.0-37.0) g/dL RDW 12.8 (11.5-14.5) % Plt Count 170 (130-400) K/uL MPV 9.0 (7.2-11.7) fL Neut % (Auto) 64.2 (50.0-75.0) % Lymph % (Auto) 23.5 (20.0-40.0) % Barbour % (Auto) 7.7 (0.0-10.0) % Eos % (Auto) 3.8 (0.0-4.0) % Baso % (Auto) 0.8 (0.0-2.0) % Neut # 4.3 (1.8-7.0) K/uL Lymph # 1.6 (1.0-4.3) K/uL Barbour # 0.5 (0.0-0.8) K/uL Eos # 0.3 (0.0-0.7) K/uL Baso # 0.1 (0.0-0.2) K/uL Sodium (132-148) mmol/L Potassium (3.6-5.2) mmol/L Chloride (98-107) mmol/L Carbon Dioxide (22-30) mmol/L Anion Gap (10-20) BUN (9-20) mg/dL Creatinine (0.8-1.5) MG/DL Est GFR ( Amer) Est GFR (Non-Af Amer) POC Glucose (mg/dL) 94 127 H (65-110) mg/dL Random Glucose (75-110) mg/dL Hemoglobin A1c (4.2-6.5) % Calcium (8.6-10.4) mg/dl Phosphorus (2.5-4.5) mg/dL Magnesium (1.6-2.3) mg/dL Total Bilirubin (0.2-1.3) mg/dL AST (17-59) U/L ALT (21-72) U/L Alkaline Phosphatase (38-126) U/L Total Protein (6.3-8.3) g/dL Albumin (3.5-5.0) g/dL Globulin (2.2-3.9) gm/dL Albumin/Globulin Ratio (1.0-2.1) Triglycerides (0-149) mg/dL Cholesterol (0-199) mg/dL LDL Cholesterol Direct (0-129) mg/dL HDL Cholesterol (30-70) mg/dL Laboratory Results - last 24 hr 09/15/16 09/15/16 09/15/16 16:07 21:07 22:00 WBC 6.6 RBC 2.59 L Hgb 8.2 L Hct 24.6 L MCV 95.1 H MCH 31.5 H MCHC 33.1 RDW 12.8 Plt Count 170 MPV 9.0 Neut % (Auto) 64.2 Lymph % (Auto) 23.5 Barbour % (Auto) 7.7 Eos % (Auto) 3.8 Baso % (Auto) 0.8 Neut # 4.3 Lymph # 1.6 Barbour # 0.5 Eos # 0.3 Baso # 0.1 Sodium Potassium Chloride Carbon Dioxide Anion Gap BUN Creatinine Est GFR ( Amer) Est GFR (Non-Af Amer) POC Glucose (mg/dL) 127 H 94 Random Glucose Hemoglobin A1c Calcium Phosphorus Magnesium Total Bilirubin AST ALT Alkaline Phosphatase Total Protein Albumin Globulin Albumin/Globulin Ratio Triglycerides Cholesterol LDL Cholesterol Direct HDL Cholesterol 09/16/16 09/16/16 09/16/16 06:12 06:12 07:35 WBC 5.1 RBC 2.07 L Hgb 6.4 L* Hct 19.7 L MCV 95.1 H MCH 31.1 H MCHC 32.7 L RDW 12.6 Plt Count 185 MPV 8.7 Neut % (Auto) 79.2 H Lymph % (Auto) 14.1 L Barbour % (Auto) 5.1 Eos % (Auto) 1.0 Baso % (Auto) 0.6 Neut # 4.0 Lymph # 0.7 L Barbour # 0.3 Eos # 0.1 Baso # 0.0 Sodium 141 Potassium 4.0 Chloride 108 H Carbon Dioxide 16 L Anion Gap 21 H BUN 11 Creatinine 0.9 Est GFR ( Amer) > 60 Est GFR (Non-Af Amer) > 60 POC Glucose (mg/dL) 121 H Random Glucose 86 Hemoglobin A1c Calcium 6.9 L Phosphorus 3.3 Magnesium 1.8 Total Bilirubin 0.3 AST 22 ALT 32 Alkaline Phosphatase 21 L D Total Protein 5.1 L Albumin 2.9 L D Globulin 2.2 Albumin/Globulin Ratio 1.3 Triglycerides 74 Cholesterol 75 LDL Cholesterol Direct 49 HDL Cholesterol 22 L 09/16/16 09/16/16 09/16/16 09:42 11:35 16:01 WBC RBC Hgb Hct MCV MCH MCHC RDW Plt Count MPV Neut % (Auto) Lymph % (Auto) Barbour % (Auto) Eos % (Auto) Baso % (Auto) Neut # Lymph # Barbour # Eos # Baso # Sodium Potassium Chloride Carbon Dioxide Anion Gap BUN Creatinine Est GFR ( Amer) Est GFR (Non-Af Amer) POC Glucose (mg/dL) 112 H 233 H Random Glucose Hemoglobin A1c 8.7 H Calcium Phosphorus Magnesium Total Bilirubin AST ALT Alkaline Phosphatase Total Protein Albumin Globulin Albumin/Globulin Ratio Triglycerides Cholesterol LDL Cholesterol Direct HDL Cholesterol Critical Care Progress Note - Nutrition Nutrition: Nutrition Category Date Time Status Liquid Diet [DIET] Diets 09/16/16 Lunch Active Attending/Attestation - Attestation I have personally seen and examined this patient.: Yes I have fully participated in the care of the patient.: Yes I have reviewed all pertinent clinical information: Yes Notes (Text): 09/16/16 16:18 Patient seen and examined in the intensive care unit. Case discussed with house staff in the morning rounds.
[2016-09-16] MEDS ORDERED: Lactated Ringer's 500 ML IV ONE (08:02)
[2016-09-16] MEDS ORDERED: Etomidate 20 mg/10ml Inj IV ONE (08:31)
[2016-09-16] MEDS: Pantoprazole 40 mg EC Tab PO SCH (09:37)
[2016-09-16 10:05] LABS: HDL CHOLESTEROL 22 mg/dL (30-70)
[2016-09-16 10:18] LABS: LDL CHOLESTEROL 49 mg/dL (0-129)
[2016-09-16 16:54] LABS: BASO % 0.6 % (0.0-2.0); EOS # 0.1 K/uL (0.0-0.7); EOS % 1.5 % (0.0-4.0); LYMPH # 1.3 K/uL (1.0-4.3); LYMPH % 21.3 % (20.0-40.0); MEAN CORPUSCULAR HGB CONC 33.3 g/dL (33.0-37.0); MEAN PLATELET VOLUME 8.6 fL (7.2-11.7); MONO # 0.7 K/uL (0.0-0.8); MONO % 10.9 % (0.0-10.0); NEUT % 65.7 % (50.0-75.0); RBC 2.95 Mil/uL (4.40-5.90); RED CELL DISTRIBUTION WIDTH 13.9 % (11.5-14.5); WHITE BLOOD COUNT 6.1 K/uL (4.8-10.8)
[2016-09-16 16:55] LABS: HEMOGLOBIN 9.1 g/dL (12.0-18.0); MEAN CELL VOLUME 93.1 fL (80.0-94.0)
--- NOTE | 2016-09-16 17:19 | CARD ---
APPROVED REPORT EKG Measurement Heart [id number] IN 176P [id number] <Conclusion> Sinus rhythm with atrial bigeminy Otherwise normal ECG
[2016-09-16] MEDS: (Novolin R) Insulin Human Regular 100 units/ml vial SC SCH (21:56)
[2016-09-17 06:55] LABS: BASO % 0.6 % (0.0-2.0); EOS # 0.3 K/uL (0.0-0.7); EOS % 3.7 % (0.0-4.0); HEMOGLOBIN 9.6 g/dL (12.0-18.0); LYMPH # 1.4 K/uL (1.0-4.3); LYMPH % 18.8 % (20.0-40.0); MEAN CELL VOLUME 92.8 fL (80.0-94.0); MEAN CORPUSCULAR HEMOGLOBIN 31.3 pg (27.0-31.0); MEAN CORPUSCULAR HGB CONC 33.7 g/dL (33.0-37.0); MEAN PLATELET VOLUME 8.7 fL (7.2-11.7); MONO # 0.7 K/uL (0.0-0.8); MONO % 9.6 % (0.0-10.0); NEUT # 4.9 K/uL (1.8-7.0); NEUT % 67.3 % (50.0-75.0); NRBC % 0.2 % (0.0-2.0); RBC 3.08 Mil/uL (4.40-5.90); RED CELL DISTRIBUTION WIDTH 13.9 % (11.5-14.5); WHITE BLOOD COUNT 7.3 K/uL (4.8-10.8)
[2016-09-17 07:22] LABS: ALBUMIN 3.4 g/dL (3.5-5.0)
[2016-09-17 07:25] LABS: ALB/GLOB RATIO 1.4 (1.0-2.1); ALT/SGPT 32 U/L (21-72); AST/SGOT 24 U/L (17-59); BLOOD UREA NITROGEN 6 mg/dL (9-20); GFR AFRICAN-AMERICAN > 60; GFR NON-AFRICAN AMERICAN > 60
[2016-09-17 07:26] LABS: CALCIUM 7.8 mg/dl (8.6-10.4)
[2016-09-17] MEDS: (Novolin R) Insulin Human Regular 100 units/ml vial SC SCH ×4 (09:00→21:19)
--- NOTE | 2016-09-17 09:27 | CP.PCM.PN ---
Subjective - Date & Time of Evaluation Date of Evaluation: 09/17/16 Time of Evaluation: 09:24 - Subjective Subjective: Covering Dr Woodard CC: follow up GI Bleed Seen in icu. cOMFORTABLE. nO bm. hGB STABLE. wANTS TO GO HOME.Denies abdominal pain, chest pain, dyspnea Objective - Vital Signs/Intake and Output Vital Signs (last 24 hours): Temp Pulse Resp BP Pulse Ox 98.5 F 62 11 L 119/55 L 99 09/17/16 08:00 09/17/16 08:00 09/17/16 08:00 09/17/16 07:00 09/17/16 08:00 Intake and Output: 09/17/16 09/17/16 06:59 18:59 Intake Total 1350 0 Output Total 2200 0 Balance -850 0 - Medications Medications: Current Medications Insulin Human Regular (Novolin R) 0 unit SC ACHS MARIBEL PRN Reason: Protocol Last Admin: 09/17/16 09:00 Dose: 1 unit Pantoprazole Sodium (Protonix Ec Tab) 40 mg PO DAILY [facility] Last Admin: 09/16/16 09:37 Dose: 40 mg Pneumococcal Polyvalent Vaccine (Pneumovax 23 Vaccine) 0.5 ml IM .ONCE ONE Stop: 09/17/16 10:01 - Labs Labs: 09/17/16 06:46 09/17/16 06:46 PT 10.2 SECONDS (9.7-12.2) 09/15/16 03:04 INR 0.9 09/15/16 03:04 APTT 29 SECONDS (21-34) 09/15/16 03:04 - Constitutional Appears: Well, No Acute Distress - Head Exam Head Exam: NORMOCEPHALIC - Eye Exam Eye Exam: absent: Scleral icterus - Respiratory Exam Respiratory Exam: Clear to Ausculation Bilateral - Cardiovascular Exam Cardiovascular Exam: REGULAR RHYTHM - GI/Abdominal Exam GI & Abdominal Exam: Soft. absent: Tenderness Assessment and Plan (1) Gastrointestinal hemorrhage Assessment & Plan: lIKELY DIVERTICULAR BLEED. nOW STABLE. mAY ADVANCE DIET AND OBSERVE Status: Acute
[2016-09-17] MEDS ORDERED: Pneumococcal 23-Valent Vaccine IM ONE (10:00)
[2016-09-17] MEDS: Pantoprazole 40 mg EC Tab PO SCH (10:13)
--- NOTE | 2016-09-17 13:10 | CP.PCM.PN ---
Subjective - Date & Time of Evaluation Date of Evaluation: 09/17/16 Time of Evaluation: 13:09 - Subjective Subjective: ok.labs,vital all noted. Objective - Vital Signs/Intake and Output Vital Signs (last 24 hours): Temp Pulse Resp BP Pulse Ox 98 F 65 17 123/82 100 09/17/16 12:00 09/17/16 13:00 09/17/16 13:00 09/17/16 13:00 09/17/16 13:00 Intake and Output: 09/17/16 09/17/16 06:59 18:59 Intake Total 1350 950 Output Total 2200 1000 Balance -850 -50 - Medications Medications: Current Medications Insulin Human Regular (Novolin R) 0 unit SC ACHS [facility] PRN Reason: Protocol Last Admin: 09/17/16 11:46 Dose: 3 unit Pantoprazole Sodium (Protonix Ec Tab) 40 mg PO DAILY [facility] Last Admin: 09/17/16 10:13 Dose: 40 mg - Labs Labs: 09/17/16 06:46 09/17/16 06:46 PT 10.2 SECONDS (9.7-12.2) 09/15/16 03:04 INR 0.9 09/15/16 03:04 APTT 29 SECONDS (21-34) 09/15/16 03:04 - Constitutional Appears: No Acute Distress - Eye Exam Eye Exam: Normal appearance - ENT Exam ENT Exam: Normal Exam - Respiratory Exam Respiratory Exam: Clear to Ausculation Bilateral - Cardiovascular Exam Cardiovascular Exam: REGULAR RHYTHM - GI/Abdominal Exam GI & Abdominal Exam: Soft - Neurological Exam Neurological Exam: Alert, Oriented x3 Assessment and Plan - Assessment and Plan (Free Text) Assessment: stable.no further gi bleed. transfer to floor.
--- NOTE | 2016-09-17 17:48 | CP.CCUPN ---
CCU Subjective - Physician Review Events Since Last Encounter (Free Text): 09/17/16 17:48 The Patient was seen and examined at the bedside, Medical records reviewed, all clinical/lab/hemodynamic/radiographic data were reviewed and management issues were discussed and formulated, Events reviewed Comfortable, NAD No evidence of active bleed VSS, stable for transfer out of ICU CCU Objective - Vital Signs / Intake & Output Vital Signs (Last 4 hours): Vital Signs Temp Pulse Resp BP Pulse Ox 09/17/16 17:00 66 11 L 124/55 L 99 09/17/16 16:00 97.7 F 60 12 122/55 L 100 09/17/16 15:00 58 L 14 125/58 L 100 09/17/16 14:50 58 L 14 122/54 L 100 09/17/16 14:00 59 L 12 100 Intake and Output (Last 8hrs): Intake & Output 09/17/16 09/17/16 09/17/16 06:59 14:59 22:59 Intake Total 900 1150 400 Output Total 1300 2100 900 Balance -400 -950 -500 Weight 155 lb 3.2 oz 155 lb 3.2 oz Intake: Oral 900 1150 400 Output: Urine 1300 2100 900 Urine, Voided 1300 2100 900 Other: # Bowel Movements 0 0 0 - Physical Exam Head: Positive for: Normocephalic Pupils: Positive for: PERRL Extroacular Muscles: Positive for: EOMI Conjunctiva: Positive for: Normal Ears: Positive for: Normal Mouth: Positive for: Moist Mucous Membranes Respiratory/Chest: Positive for: Clear to Auscultation, Good Air Exchange. Negative for: Wheezes, Rales Cardiovascular: Positive for: Regular Rate and Rhythm, Normal S1, S2 Abdomen: Positive for: Normal Bowel Sounds. Negative for: Tenderness Lower Extremity: Negative for: Edema, CALF TENDERNESS, Tenderness, Swelling Neurological: Positive for: Speech Normal Skin: Positive for: Warm, Normal Color Psychiatric: Positive for: Alert, Oriented x 3 - Medications Active Medications: Active Medications Generic Name Dose Route Start Last Admin Trade Name Freq PRN Reason Stop Dose Admin Insulin Human Regular 0 unit 09/16/16 22:00 09/17/16 16:51 Novolin R SC 1 unit ACHS MARIBEL Administration Protocol Pantoprazole Sodium 40 mg 09/16/16 10:00 09/17/16 10:13 Protonix Ec Tab PO 40 mg DAILY [facility]EL Administration - Patient Studies Lab Studies: Lab Studies 09/17/16 09/17/16 09/17/16 Range/Units 16:18 11:22 07:10 WBC (4.8-10.8) K/uL RBC (4.40-5.90) Mil/uL Hgb (12.0-18.0) g/dL Hct (35.0-51.0) % MCV (80.0-94.0) fL MCH (27.0-31.0) pg MCHC (33.0-37.0) g/dL RDW (11.5-14.5) % Plt Count (130-400) K/uL MPV (7.2-11.7) fL Neut % (Auto) (50.0-75.0) % Lymph % (Auto) (20.0-40.0) % Jennings % (Auto) (0.0-10.0) % Eos % (Auto) (0.0-4.0) % Baso % (Auto) (0.0-2.0) % Neut # (1.8-7.0) K/uL Lymph # (1.0-4.3) K/uL Jennings # (0.0-0.8) K/uL Eos # (0.0-0.7) K/uL Baso # (0.0-0.2) K/uL Sodium (132-148) mmol/L Potassium (3.6-5.2) mmol/L Chloride (98-107) mmol/L Carbon Dioxide (22-30) mmol/L Anion Gap (10-20) BUN (9-20) mg/dL Creatinine (0.8-1.5) MG/DL Est GFR ( Amer) Est GFR (Non-Af Amer) POC Glucose (mg/dL) 195 H 294 H 178 H (65-110) mg/dL Random Glucose (75-110) mg/dL Calcium (8.6-10.4) mg/dl Phosphorus (2.5-4.5) mg/dL Magnesium (1.6-2.3) mg/dL Total Bilirubin (0.2-1.3) mg/dL AST (17-59) U/L ALT (21-72) U/L Alkaline Phosphatase (38-126) U/L Total Protein (6.3-8.3) g/dL Albumin (3.5-5.0) g/dL Globulin (2.2-3.9) gm/dL Albumin/Globulin Ratio (1.0-2.1) 09/17/16 09/17/16 09/16/16 Range/Units 06:46 06:46 20:51 WBC 7.3 (4.8-10.8) K/uL RBC 3.08 L (4.40-5.90) Mil/uL Hgb 9.6 L (12.0-18.0) g/dL Hct 28.6 L (35.0-51.0) % MCV 92.8 (80.0-94.0) fL MCH 31.3 H (27.0-31.0) pg MCHC 33.7 (33.0-37.0) g/dL RDW 13.9 (11.5-14.5) % Plt Count 195 (130-400) K/uL MPV 8.7 (7.2-11.7) fL Neut % (Auto) 67.3 (50.0-75.0) % Lymph % (Auto) 18.8 L (20.0-40.0) % Jennings % (Auto) 9.6 (0.0-10.0) % Eos % (Auto) 3.7 (0.0-4.0) % Baso % (Auto) 0.6 (0.0-2.0) % Neut # 4.9 (1.8-7.0) K/uL Lymph # 1.4 (1.0-4.3) K/uL Jennings # 0.7 (0.0-0.8) K/uL Eos # 0.3 (0.0-0.7) K/uL Baso # 0.0 (0.0-0.2) K/uL Sodium 136 (132-148) mmol/L Potassium 3.8 (3.6-5.2) mmol/L Chloride 101 (98-107) mmol/L Carbon Dioxide 22 (22-30) mmol/L Anion Gap 17 (10-20) BUN 6 L (9-20) mg/dL Creatinine 0.9 (0.8-1.5) MG/DL Est GFR ( Amer) > 60 Est GFR (Non-Af Amer) > 60 POC Glucose (mg/dL) 228 H (65-110) mg/dL Random Glucose 138 H (75-110) mg/dL Calcium 7.8 L (8.6-10.4) mg/dl Phosphorus 2.0 L (2.5-4.5) mg/dL Magnesium 2.0 (1.6-2.3) mg/dL Total Bilirubin 0.5 (0.2-1.3) mg/dL AST 24 (17-59) U/L ALT 32 (21-72) U/L Alkaline Phosphatase 29 L D (38-126) U/L Total Protein 5.9 L (6.3-8.3) g/dL Albumin 3.4 L (3.5-5.0) g/dL Globulin 2.5 (2.2-3.9) gm/dL Albumin/Globulin Ratio 1.4 (1.0-2.1) Laboratory Results - last 24 hr 09/16/16 09/17/16 09/17/16 20:51 06:46 06:46 WBC 7.3 RBC 3.08 L Hgb 9.6 L Hct 28.6 L MCV 92.8 MCH 31.3 H MCHC 33.7 RDW 13.9 Plt Count 195 MPV 8.7 Neut % (Auto) 67.3 Lymph % (Auto) 18.8 L Jennings % (Auto) 9.6 Eos % (Auto) 3.7 Baso % (Auto) 0.6 Neut # 4.9 Lymph # 1.4 Jennings # 0.7 Eos # 0.3 Baso # 0.0 Sodium 136 Potassium 3.8 Chloride 101 Carbon Dioxide 22 Anion Gap 17 BUN 6 L Creatinine 0.9 Est GFR ( Amer) > 60 Est GFR (Non-Af Amer) > 60 POC Glucose (mg/dL) 228 H Random Glucose 138 H Calcium 7.8 L Phosphorus 2.0 L Magnesium 2.0 Total Bilirubin 0.5 AST 24 ALT 32 Alkaline Phosphatase 29 L D Total Protein 5.9 L Albumin 3.4 L Globulin 2.5 Albumin/Globulin Ratio 1.4 09/17/16 09/17/16 09/17/16 07:10 11:22 16:18 WBC RBC Hgb Hct MCV MCH MCHC RDW Plt Count MPV Neut % (Auto) Lymph % (Auto) Jennings % (Auto) Eos % (Auto) Baso % (Auto) Neut # Lymph # Jennings # Eos # Baso # Sodium Potassium Chloride Carbon Dioxide Anion Gap BUN Creatinine Est GFR ( Amer) Est GFR (Non-Af Amer) POC Glucose (mg/dL) 178 H 294 H 195 H Random Glucose Calcium Phosphorus Magnesium Total Bilirubin AST ALT Alkaline Phosphatase Total Protein Albumin Globulin Albumin/Globulin Ratio Fingerstick Blood Sugar Results: 195 Review of Systems - Cardiovascular Cardiovascular: absent: As Per HPI, Acrocyanosis, Chest Pain, Chest Pain at Rest , Chest Pain with Activity, Claudication, Diaphoresis, Dyspnea, Dyspnea on Exertion, Edema, Irregular Heart Rhythm, Pain Radiating to Arm/Neck/Jaw, Leg Edema, Leg Ulcers, Lightheadedness, Orthopnea, Palpitations, Paroxysmal Nocturnal Dyspnea, Pedal Edema, Radiating Pain, Rapid Heart Rate, Slow Heart Rate, Syncope, Other, UNREMARKABLE - Respiratory Respiratory: absent: As Per HPI, Cough, Dyspnea, Hemoptysis, Dyspnea on Exertion , Wheezing, Snoring, Stridor, Pain on Inspiration, Chest Congestion, Excessive Mucous Production, Change in Mucous Color, Pain with Coughing, Other, UNREMARKABLE - Gastrointestinal Gastrointestinal: absent: As Per HPI, Abdominal Pain, Belching, Bloating, Change in Bowel Habits, Change in Stool Character, Coffee Ground Emesis, Constipation, Cramping, Diarrhea, Dyspepsia, Dysphagia, Early Satiety, Excessive Flatus, Fecal Incontinence, Heartburn, Hematemesis, Hematochezia, Loose Stools, Melena, Nausea, Odynophagia, Temesmus, Vomiting, Other, UNREMARKABLE Critical Care Progress Note - Nutrition Nutrition: Nutrition Category Date Time Status Consistent Carbohydrate [DIET] Diets 09/17/16 Dinner Active Assessment/Plan (1) Gastrointestinal hemorrhage Current Visit: Yes Status: Acute (2) Melena Current Visit: Yes Status: Acute
[2016-09-17 22:30] VITALS: RESP 20
[2016-09-18] MEDS: (Novolin R) Insulin Human Regular 100 units/ml vial SC SCH ×4 (08:05→22:02)
[2016-09-18] MEDS: Pantoprazole 40 mg EC Tab PO SCH (09:04)
--- NOTE | 2016-09-18 12:10 | CP.PCM.PN ---
Subjective - Date & Time of Evaluation Date of Evaluation: 09/18/16 Time of Evaluation: 12:08 - Subjective Subjective: Covering Dr Woodard CC: GI bleed Had 2 epsiodes of bright rectal bleeding yesterday. Labs drawn this AM, pending. [place] light headed, now back to normal and patient is eating lunch. Denies abdominal pain. Objective - Vital Signs/Intake and Output Vital Signs (last 24 hours): Temp Pulse Resp BP Pulse Ox 98.2 F 100 H 20 107/65 100 09/18/16 08:00 09/18/16 08:00 09/18/16 08:00 09/18/16 08:00 09/18/16 08:00 Intake and Output: 09/18/16 09/18/16 06:59 18:59 Intake Total 0 Output Total 0 Balance 0 - Medications Medications: Current Medications Insulin Human Regular (Novolin R) 0 unit SC ACHS MARIBEL PRN Reason: Protocol Last Admin: 09/18/16 08:05 Dose: 1 unit Pantoprazole Sodium (Protonix Ec Tab) 40 mg PO DAILY [facility] Last Admin: 09/18/16 09:04 Dose: 40 mg - Labs Labs: 09/17/16 06:46 09/17/16 06:46 PT 10.2 SECONDS (9.7-12.2) 09/15/16 03:04 INR 0.9 09/15/16 03:04 APTT 29 SECONDS (21-34) 09/15/16 03:04 - Constitutional Appears: No Acute Distress - Head Exam Head Exam: NORMOCEPHALIC - Eye Exam Eye Exam: absent: Scleral icterus - Cardiovascular Exam Cardiovascular Exam: REGULAR RHYTHM - GI/Abdominal Exam GI & Abdominal Exam: Soft, Normal Bowel Sounds. absent: Tenderness Assessment and Plan (1) Gastrointestinal hemorrhage Assessment & Plan: intermittent recurrences. typical of diverticular bleeding, can recur unpredicatably. stella to monitor for bleeding and follow up CBC. Status: Acute
[2016-09-18 12:11] LABS: HEMOGLOBIN 7.7 g/dL (12.0-18.0); MEAN CORPUSCULAR HEMOGLOBIN 31.5 pg (27.0-31.0); MEAN CORPUSCULAR HGB CONC 34.7 g/dL (33.0-37.0); MEAN PLATELET VOLUME 8.5 fL (7.2-11.7); RBC 2.44 Mil/uL (4.40-5.90); RED CELL DISTRIBUTION WIDTH 13.7 % (11.5-14.5); WHITE BLOOD COUNT 6.1 K/uL (4.8-10.8)
[2016-09-18 12:12] LABS: MEAN CELL VOLUME 90.7 fL (80.0-94.0)
[2016-09-19 07:54] LABS: ALBUMIN 3.7 g/dL (3.5-5.0)
[2016-09-19 07:57] LABS: GFR AFRICAN-AMERICAN > 60; GFR NON-AFRICAN AMERICAN > 60
[2016-09-19 07:58] LABS: ALB/GLOB RATIO 1.6 (1.0-2.1); ALT/SGPT 34 U/L (21-72); AST/SGOT 27 U/L (17-59); BLOOD UREA NITROGEN 13 mg/dL (9-20); CALCIUM 8.6 mg/dl (8.6-10.4); MAGNESIUM 1.7 mg/dL (1.6-2.3)
[2016-09-19 08:11] LABS: EOS # 0.5 K/uL (0.0-0.7); EOS % 9.2 % (0.0-4.0); HEMOGLOBIN 7.7 g/dL (12.0-18.0); LYMPH # 1.2 K/uL (1.0-4.3); LYMPH % 23.3 % (20.0-40.0); MEAN CELL VOLUME 92.1 fL (80.0-94.0); MEAN CORPUSCULAR HEMOGLOBIN 31.4 pg (27.0-31.0); MEAN CORPUSCULAR HGB CONC 34.1 g/dL (33.0-37.0); MEAN PLATELET VOLUME 8.5 fL (7.2-11.7); MONO # 0.5 K/uL (0.0-0.8); MONO % 10.2 % (0.0-10.0); NEUT # 2.9 K/uL (1.8-7.0); NEUT % 56.3 % (50.0-75.0); NRBC % 0.3 % (0.0-2.0); RBC 2.45 Mil/uL (4.40-5.90); RED CELL DISTRIBUTION WIDTH 13.5 % (11.5-14.5); WHITE BLOOD COUNT 5.2 K/uL (4.8-10.8)
[2016-09-19] MEDS: (Novolin R) Insulin Human Regular 100 units/ml vial SC SCH ×4 (08:30→22:25)
[2016-09-19] MEDS: Pantoprazole 40 mg EC Tab PO SCH (09:44)
--- NOTE | 2016-09-19 10:25 | CP.PCM.PN ---
Subjective - Date & Time of Evaluation Date of Evaluation: 09/19/16 Time of Evaluation: 10:22 - Subjective Subjective: Patient denies having nausea, vomiting, abdominal pain. He has not noted any further bleeding per rectum. Objective - Vital Signs/Intake and Output Vital Signs (last 24 hours): Temp Pulse Resp BP Pulse Ox 98.1 F 69 20 131/73 98 09/19/16 07:28 09/19/16 07:28 09/19/16 07:28 09/19/16 07:28 09/19/16 07:28 Intake and Output: 09/19/16 09/19/16 06:59 18:59 Intake Total 600 Balance 600 - Medications Medications: Current Medications Insulin Human Regular (Novolin R) 0 unit SC ACHS MARIBEL PRN Reason: Protocol Last Admin: 09/19/16 08:30 Dose: 4 unit Pantoprazole Sodium (Protonix Ec Tab) 40 mg PO DAILY [facility] Last Admin: 09/19/16 09:44 Dose: 40 mg - Labs Labs: 09/19/16 07:14 09/19/16 07:14 PT 10.2 SECONDS (9.7-12.2) 09/15/16 03:04 INR 0.9 09/15/16 03:04 APTT 29 SECONDS (21-34) 09/15/16 03:04 - Constitutional Appears: No Acute Distress - Head Exam Head Exam: ATRAUMATIC, NORMOCEPHALIC - Eye Exam Eye Exam: EOMI, PERRL - Neck Exam Neck Exam: absent: Lymphadenopathy, Thyromegaly - Respiratory Exam Respiratory Exam: NORMAL BREATHING PATTERN. absent: Rales, Rhonchi, Wheezes - Cardiovascular Exam Cardiovascular Exam: REGULAR RHYTHM, +S1, +S2. absent: Gallop, Rubs, Murmur - GI/Abdominal Exam GI & Abdominal Exam: Soft, Normal Bowel Sounds. absent: Tenderness, Mass, Organomegaly - Rectal Exam Rectal Exam: Deferred - Extremities Exam Extremities Exam: absent: Calf Tenderness, Pedal Edema Assessment and Plan (1) Gastrointestinal hemorrhage Assessment & Plan: Patient had another episode of bleeding over the weekend, evidently self- limited. He has not had any further bleeding since then, and the HGB is stable at 7.7. The most likely etiology of the bleeding is diverticulosis. Recommend office follow up in two weeks. Status: Acute
--- NOTE | 2016-09-19 14:17 | CP.PCM.PN ---
Subjective - Date & Time of Evaluation Date of Evaluation: 09/19/16 Time of Evaluation: 14:16 - Subjective Subjective: weak.sugar high.low hb. Objective - Vital Signs/Intake and Output Vital Signs (last 24 hours): Temp Pulse Resp BP Pulse Ox 98.1 F 69 20 131/73 98 09/19/16 07:28 09/19/16 07:28 09/19/16 07:28 09/19/16 07:28 09/19/16 07:28 Intake and Output: 09/19/16 09/19/16 06:59 18:59 Intake Total 600 Balance 600 - Medications Medications: Current Medications Insulin Human Regular (Novolin R) 0 unit SC ACHS MARIBEL PRN Reason: Protocol Last Admin: 09/19/16 12:27 Dose: 5 unit Pantoprazole Sodium (Protonix Ec Tab) 40 mg PO DAILY [facility] Last Admin: 09/19/16 09:44 Dose: 40 mg - Labs Labs: 09/19/16 07:14 09/19/16 07:14 PT 10.2 SECONDS (9.7-12.2) 09/15/16 03:04 INR 0.9 09/15/16 03:04 APTT 29 SECONDS (21-34) 09/15/16 03:04 - Constitutional Appears: No Acute Distress - ENT Exam ENT Exam: Mucous Membranes Moist - Neck Exam Neck Exam: Normal Inspection - Respiratory Exam Respiratory Exam: Clear to Ausculation Bilateral - Cardiovascular Exam Cardiovascular Exam: REGULAR RHYTHM - GI/Abdominal Exam GI & Abdominal Exam: Soft - Neurological Exam Neurological Exam: Alert, Oriented x3 Assessment and Plan - Assessment and Plan (Free Text) Assessment: will transfusae one unit.resume janumet.
[2016-09-19] MEDS ORDERED: DiphenhydrAMINE 50 mg/ml Inj IVP STA (22:31)
[2016-09-20 07:25] LABS: EOS # 0.4 K/uL (0.0-0.7); EOS % 7.7 % (0.0-4.0); HEMOGLOBIN 8.7 g/dL (12.0-18.0); LYMPH % 21.5 % (20.0-40.0); MEAN CORPUSCULAR HGB CONC 34.4 g/dL (33.0-37.0); MEAN PLATELET VOLUME 8.1 fL (7.2-11.7); MONO # 0.4 K/uL (0.0-0.8); MONO % 9.1 % (0.0-10.0); NEUT # 2.9 K/uL (1.8-7.0); NEUT % 60.7 % (50.0-75.0); NRBC % 0.1 % (0.0-2.0); RBC 2.8 Mil/uL (4.40-5.90); RED CELL DISTRIBUTION WIDTH 13.7 % (11.5-14.5); WHITE BLOOD COUNT 4.8 K/uL (4.8-10.8)
[2016-09-20 07:49] LABS: MEAN CELL VOLUME 90.1 fL (80.0-94.0)
[2016-09-20] MEDS: (Novolin R) Insulin Human Regular 100 units/ml vial SC SCH ×4 (08:30→21:22)
[2016-09-20] MEDS: Pantoprazole 40 mg EC Tab PO SCH (09:45)
--- NOTE | 2016-09-20 11:06 | CP.PCM.PN ---
Subjective - Date & Time of Evaluation Date of Evaluation: 09/20/16 Time of Evaluation: 11:03 - Subjective Subjective: Patient was transfused one unit of PRBCs yesterday and HGB increased ot 8.7. He denies having abdominal pain, nausea, vomiting. He has not had a bowel movement today, but yesterday afternoon, he had a formed, brown stool with streaks of blood on the side. Objective - Vital Signs/Intake and Output Vital Signs (last 24 hours): Temp Pulse Resp BP Pulse Ox 98.4 F 84 20 125/58 L 98 09/20/16 00:00 09/20/16 00:00 09/20/16 00:00 09/20/16 00:00 09/20/16 00:00 Intake and Output: 09/20/16 09/20/16 06:59 18:59 Intake Total 625 Balance 625 - Medications Medications: Current Medications Insulin Human Regular (Novolin R) 0 unit SC ACHS MARIBEL PRN Reason: Protocol Last Admin: 09/20/16 08:30 Dose: 4 unit Metformin HCl (Glucophage) 500 mg PO BIDCC [facility] Last Admin: 09/20/16 09:00 Dose: 500 mg Pantoprazole Sodium (Protonix Ec Tab) 40 mg PO DAILY [facility] Last Admin: 09/20/16 09:45 Dose: 40 mg Sitagliptin Phosphate (Januvia) 50 mg PO DAILY [facility] Last Admin: 09/20/16 09:45 Dose: 50 mg - Labs Labs: 09/20/16 07:05 09/19/16 07:14 PT 10.2 SECONDS (9.7-12.2) 09/15/16 03:04 INR 0.9 09/15/16 03:04 APTT 29 SECONDS (21-34) 09/15/16 03:04 - Constitutional Appears: No Acute Distress - Head Exam Head Exam: ATRAUMATIC, NORMOCEPHALIC - Eye Exam Eye Exam: EOMI, PERRL - Neck Exam Neck Exam: absent: Lymphadenopathy, Thyromegaly - Respiratory Exam Respiratory Exam: NORMAL BREATHING PATTERN. absent: Rales, Rhonchi, Wheezes - Cardiovascular Exam Cardiovascular Exam: REGULAR RHYTHM, +S1, +S2. absent: Gallop, Rubs, Murmur - GI/Abdominal Exam GI & Abdominal Exam: Soft, Normal Bowel Sounds. absent: Tenderness, Mass, Organomegaly - Rectal Exam Rectal Exam: Deferred - Extremities Exam Extremities Exam: absent: Calf Tenderness, Pedal Edema Assessment and Plan (1) Gastrointestinal hemorrhage Assessment & Plan: Patient noted a small amount of blood on the surface of the stool yesterday. He has not had another bowel movement since then. The HGB increased appropriately following transfusion. Since large hemorrhoids were found on colonoscopy last Monday, we should consider the possibility that the hemorrhoids are responsible for the recent bleeding. Status: Acute
[2016-09-20] MEDS: Multiple Vitamins Tab PO SCH (12:38)
[2016-09-20 16:09] VITALS: TEMP 98.4
--- NOTE | 2016-09-20 16:11 | CP.PCM.PN ---
Subjective - Date & Time of Evaluation Date of Evaluation: 09/20/16 Time of Evaluation: 16:10 - Subjective Subjective: ok.hb 8.7 Objective - Vital Signs/Intake and Output Vital Signs (last 24 hours): Temp Pulse Resp BP Pulse Ox 98.4 F 78 20 130/66 100 09/20/16 15:00 09/20/16 15:00 09/20/16 15:00 09/20/16 15:00 09/20/16 15:00 Intake and Output: 09/20/16 09/20/16 06:59 18:59 Intake Total 625 480 Balance 625 480 - Medications Medications: Current Medications Ferrous Sulfate (Feosol) 325 mg PO BID [facility] Last Admin: 09/20/16 12:37 Dose: 325 mg Hydrocortisone (Anusol-Hc) [address] BID [facility] Insulin Human Regular (Novolin R) 0 unit SC ACHS [facility] PRN Reason: Protocol Last Admin: 09/20/16 12:30 Dose: 5 [facility] Last Admin: 09/20/16 09:00 Dose: 500 mg Multivitamins (Hexavitamin) 1 tab PO DAILY [facility] Last Admin: 09/20/16 12:38 Dose: 1 tab Pantoprazole Sodium (Protonix Ec Tab) 40 mg PO DAILY [facility] Last Admin: 09/20/16 09:45 Dose: 40 mg Sitagliptin Phosphate (Januvia) 50 mg PO DAILY [facility] Last Admin: 09/20/16 09:45 Dose: 50 mg - Labs Labs: 09/20/16 07:05 09/19/16 07:14 PT 10.2 SECONDS (9.7-12.2) 09/15/16 03:04 INR 0.9 09/15/16 03:04 APTT 29 SECONDS (21-34) 09/15/16 03:04 - Constitutional Appears: No Acute Distress - Eye Exam Eye Exam: Normal appearance - ENT Exam ENT Exam: Normal Exam - Respiratory Exam Respiratory Exam: Clear to Ausculation Bilateral - Cardiovascular Exam Cardiovascular Exam: REGULAR RHYTHM - GI/Abdominal Exam GI & Abdominal Exam: Soft - Neurological Exam Neurological Exam: Alert, Oriented x3 Assessment and Plan - Assessment and Plan (Free Text) Plan: gi bleed.stable.d/c home in am
[2016-09-20] MEDS: Hydrocortisone 2.5% Rectal Cream(30 gm) PR SCH (17:36)
[2016-09-21 07:26] LABS: BASO % 0.9 % (0.0-2.0); EOS # 0.4 K/uL (0.0-0.7); EOS % 6.9 % (0.0-4.0); HEMOGLOBIN 9.6 g/dL (12.0-18.0); LYMPH % 18.6 % (20.0-40.0); MEAN CELL VOLUME 91.2 fL (80.0-94.0); MEAN CORPUSCULAR HEMOGLOBIN 30.8 pg (27.0-31.0); MEAN CORPUSCULAR HGB CONC 33.8 g/dL (33.0-37.0); MEAN PLATELET VOLUME 8.1 fL (7.2-11.7); MONO # 0.5 K/uL (0.0-0.8); MONO % 9.5 % (0.0-10.0); NEUT # 3.4 K/uL (1.8-7.0); NEUT % 64.1 % (50.0-75.0); NRBC % 0.2 % (0.0-2.0); RBC 3.12 Mil/uL (4.40-5.90); RED CELL DISTRIBUTION WIDTH 13.7 % (11.5-14.5); WHITE BLOOD COUNT 5.3 K/uL (4.8-10.8)
[2016-09-21] MEDS: (Novolin R) Insulin Human Regular 100 units/ml vial SC SCH ×2 (07:39→12:28)
[2016-09-21 08:11] VITALS: BP 113/63; PULSE 84; O2SAT 97
[2016-09-21] MEDS: Multiple Vitamins Tab PO SCH (10:58)
[2016-09-21] MEDS: Pantoprazole 40 mg EC Tab PO SCH (10:58)
[2016-09-21] MEDS: Hydrocortisone 2.5% Rectal Cream(30 gm) PR SCH (10:59)
== END 2016-09-21 14:50 | disposition home or self-care (01) | DRG 379 ==
LOC: C.ER 02:34 → C.6T 04:01 → C.9I 09:15 → C.3T 09-17 22:15
PROVIDERS: ADMIT Internal Medicine Cardiovascular Disease; ATTEND Internal Medicine Cardiovascular Disease
PROC: 0DJ08ZZ Inspection of Upper Intestinal Tract, Via Natural or Artificial Opening Endoscopic (ICD-10-PCS; 2016-09-15)
PROC: 0DJD8ZZ Inspection of Lower Intestinal Tract, Via Natural or Artificial Opening Endoscopic (ICD-10-PCS; principal; 2016-09-16 08:00)
PROC: 30233N1 Transfusion of Nonautologous Red Blood Cells into Peripheral Vein, Percutaneous Approach (ICD-10-PCS; 2016-09-19)
DX: K57.31 Diverticulosis of large intestine without perforation or abscess with bleeding (principal); K64.0 First degree hemorrhoids; D64.9 Anemia, unspecified; K57.10 Diverticulosis of small intestine without perforation or abscess without bleeding; K44.9 Diaphragmatic hernia without obstruction or gangrene; I10 Essential (primary) hypertension; E11.9 Type 2 diabetes mellitus without complications; E78.00 Pure hypercholesterolemia, unspecified; Z23 Encounter for immunization; Z90.49 Acquired absence of other specified parts of digestive tract